=== PATIENT | male | born 1965 | race Caucasian/White ===

== ENCOUNTER → 2019-11-12 | Outpatient (CLI) | payer BC ==
[2019-11-12 08:11] LABS: HEMATOCRIT 46.4 % (42.0-52.0); MEAN CELL VOLUME 96 fl (80.0-100.0); MEAN CORPUSCULAR HEMOGLOBIN 33 pg (27.0-31.0); MEAN CORPUSCULAR HGB CONC 35 g/dl (33.0-37.0); MEAN PLATELET VOLUME 9.7 fl (7.4-10.4); PLATELET COUNT 221 K/mm3 (130-400); RED BLOOD COUNT 4.84 M/mm3 (4.20-5.60); REDCELL DISTRIBUTION WIDTH-CV 12.8 % (11.5-14.5)
[2019-11-12 08:31] LABS: ALBUMIN 4.6 gm/dL (3.5-5.0); BILIRUBIN,TOTAL 0.4 mg/dL (0.0-1.0); CALCIUM 9.9 mg/dL (8.4-10.2); CHOLESTEROL RISK RATIO 3.6; CREATININE, serum 0.71 (0.66-1.25); POTASSIUM 4.4 mmol/L (3.4-5.0); TOTAL PROTEIN 7.8 gm/dL (6.4-8.2)
[2019-11-12 09:01] LABS: THYROID STIMULATING HORMONE 1.58 uIU/mL (0.465-4.680)
[2019-11-12 22:53] LABS: URINE MICROALBUMIN 16.3 mg/dL (0.0-1.7)
== END ==
LOC: COL.LAB 07:49
PROVIDERS: Family Medicine
DX: E11.9 Type 2 diabetes mellitus without complications (principal)

== ENCOUNTER → 2020-03-25 | Outpatient (CLI) | payer OTHER | LOC: COL.LAB 13:18 | DX: Z20.828 Contact with and (suspected) exposure to other viral communicable diseases (principal) ==

== ENCOUNTER → 2020-03-29 | Outpatient (CLI) | payer BC ==
[2020-03-29 10:52] LABS: HEMATOCRIT 47.8 % (42.0-52.0); HEMOGLOBIN 16.2 g/dl (13.5-18.0); MEAN CELL VOLUME 97 fl (80.0-100.0); MEAN CORPUSCULAR HEMOGLOBIN 33 pg (27.0-31.0); MEAN CORPUSCULAR HGB CONC 34 g/dl (33.0-37.0); PLATELET COUNT 200 K/mm3 (130-400); RED BLOOD COUNT 4.95 M/mm3 (4.20-5.60); REDCELL DISTRIBUTION WIDTH-CV 12.3 % (11.5-14.5)
[2020-03-29 11:05] LABS: ALBUMIN 4.6 gm/dL (3.5-5.0); BILIRUBIN,TOTAL 0.8 mg/dL (0.0-1.0); CALCIUM 9.9 mg/dL (8.4-10.2); CHOLESTEROL RISK RATIO 4.7; CREATININE, serum 0.72 (0.66-1.25); POTASSIUM 4.6 mmol/L (3.4-5.0); TOTAL PROTEIN 8.1 gm/dL (6.4-8.2)
[2020-03-29 11:34] LABS: TSH w REFLEX 2.19 uIU/mL (0.465-4.680)
[2020-03-29 21:00] LABS: URINE MICROALBUMIN 28.5 mg/dL (0.0-1.7)
== END ==
LOC: COL.LAB 10:26
PROVIDERS: Family Medicine
DX: Z20.828 Contact with and (suspected) exposure to other viral communicable diseases (principal)

== ENCOUNTER → 2021-03-29 | Outpatient (CLI) | payer OTHER ==
[~2021-03-29] MED LIST: ASPIRIN 81M81 MG/TA2 PO; CARDIZEM CD360 MG PO; CRESTOR 10MG10 MG PO; CYMBALTA 60MG60 MG PO; PRINIVIL40 MG PO; SYNJARDY XR 121 EACH PO; TRESIBA FL200 UNIT/1 SQ; XULTOPHY 100 UNI3 ML SQ; ZYRTEC 10MG10 MG PO
[2021-03-29 09:45] LABS: HEMATOCRIT 46.1 % (42.0-52.0); HEMOGLOBIN 15.5 g/dl (13.5-18.0); MEAN CELL VOLUME 97 fl (80.0-100.0); MEAN CORPUSCULAR HEMOGLOBIN 33 pg (27.0-31.0); MEAN CORPUSCULAR HGB CONC 34 g/dl (33.0-37.0); MEAN PLATELET VOLUME 10.4 fl (7.4-10.4); PLATELET COUNT 187 K/mm3 (130-400); RED BLOOD COUNT 4.74 M/mm3 (4.20-5.60); REDCELL DISTRIBUTION WIDTH-CV 12.7 % (11.5-14.5)
[2021-03-29 09:46] LABS: ALBUMIN 4.5 gm/dL (3.5-5.0); BILIRUBIN,TOTAL 0.4 mg/dL (0.0-1.0); CHOLESTEROL RISK RATIO 5.7; CREATININE, serum 0.68 (0.66-1.25); POTASSIUM 5.2 mmol/L (3.4-5.0); TOTAL PROTEIN 7.8 gm/dL (6.4-8.2)
[2021-03-29 10:36] LABS: TSH w REFLEX 1.83 uIU/mL (0.465-4.680)
[2021-03-29 23:00] LABS: URINE MICROALBUMIN 21.6 mg/dL (0.0-1.7)
== END ==
LOC: COL.LAB 08:48
DX: E11.21 Type 2 diabetes mellitus with diabetic nephropathy (principal); Z72.89 Other problems related to lifestyle

== ENCOUNTER → 2021-06-06 | Outpatient (CLI) | payer OTHER ==
[2021-06-06 13:56] LABS: ALBUMIN 4.7 gm/dL (3.5-5.0); BILIRUBIN,TOTAL 0.2 mg/dL (0.0-1.0); CREATININE, serum 0.78 (0.66-1.25); POTASSIUM 4.8 mmol/L (3.4-5.0); TOTAL PROTEIN 8.3 gm/dL (6.4-8.2)
== END ==
LOC: COL.LAB 12:31
DX: Z12.5 Encounter for screening for malignant neoplasm of prostate (principal); Z72.89 Other problems related to lifestyle

== ENCOUNTER 2021-08-29 14:47 | Emergency (ER) | payer OTHER ==
[~2021-08-29] VITALS: Ht 177.8 cm; Wt 115.9 kg
[2021-08-29 14:53] VITALS: TEMP 99.3
[2021-08-29 15:08] LABS: BASO % 0.6 % (0.0-2.0); EOS # 0.1 K/mm3 (0.0-0.7); EOS % 1.7 % (0-4.0); GRAN # 3.5 K/mm3 (1.4-6.5); GRAN % 66.7 % (42.2-75.2); HEMATOCRIT 45.5 % (42.0-52.0); HEMOGLOBIN 15.1 g/dl (13.5-18.0); LYMPH # 1.1 K/mm3 (1.2-3.4); LYMPH % 20.8 % (20.0-51.0); MEAN CELL VOLUME 98 fl (80.0-100.0); MEAN CORPUSCULAR HEMOGLOBIN 33 pg (27.0-31.0); MEAN CORPUSCULAR HGB CONC 33 g/dl (33.0-37.0); MEAN PLATELET VOLUME 9.7 fl (7.4-10.4); MONO # 0.5 K/mm3 (0.1-0.6); MONO % 9.6 % (1.7-9.3); PLATELET COUNT 194 K/mm3 (130-400); RED BLOOD COUNT 4.63 M/mm3 (4.20-5.60); REDCELL DISTRIBUTION WIDTH-CV 13.3 % (11.5-14.5)
[2021-08-29 15:27] LABS: ALBUMIN 4.2 gm/dL (3.5-5.0); BILIRUBIN,TOTAL 0.4 mg/dL (0.2-1.2); CALCIUM 10.2 mg/dL (8.4-10.2); CREATININE, serum 0.83 mg/dL (0.72-1.25); TOTAL PROTEIN 8.1 gm/dL (6.2-8.1)
[2021-08-29] MEDS ORDERED: PRINIVIL40 MG PO (15:28)
[2021-08-29] MEDS ORDERED: XULTOPHY 100 UNI3 ML SQ (15:29)
[2021-08-29] MEDS ORDERED: CRESTOR 10MG10 MG PO (15:30)
[2021-08-29] MEDS ORDERED: CYMBALTA 60MG60 MG PO (15:30)
[2021-08-29] MEDS ORDERED: CARDIZEM CD360 MG PO (15:31)
[2021-08-29 15:32] LABS: TROPONIN-I 0.016 ng/mL (0.00-0.033)
[2021-08-29] MEDS ORDERED: ASPIRIN 81M81 MG/TA2 PO (15:32)
[2021-08-29] MEDS ORDERED: TRESIBA FL200 UNIT/1 SQ (15:32)
[2021-08-29] MEDS ORDERED: ZYRTEC 10MG10 MG PO (15:33)
[2021-08-29] MEDS ORDERED: SYNJARDY XR 121 EACH PO (15:34)
[2021-08-29 15:58] LABS: COLLECTION METHOD CLEAN CATCH
[2021-08-29 16:21] LABS: MUCOUS Present (NOT PRESENT); PH 7 (5-8); SQUAMOUS EPITHELIAL None Seen /hpf (0-10); URINE APPEARANCE Clear (CLEAR/HAZY); URINE BACTERIA Rare (NONE SEEN); URINE BILIRUBIN Negative (NEGATIVE); URINE BLOOD Negative (NEGATIVE); URINE COLOR Yellow (YELLOW); URINE GLUCOSE 3+ (NEGATIVE); URINE KETONE Negative (NEGATIVE); URINE LEUKOCYTE ESTERASE Negative (NEGATIVE); URINE NITRATE Negative (NEGATIVE); URINE PROTEIN(semi-quant) 2+ (NEGATIVE); URINE UROBILINOGEN Negative (NEGATIVE)
[2021-08-29 17:36] VITALS: BP 174/90; PULSE 74
== END 2021-08-29 17:50 | disposition home or self-care (01) ==
LOC: COL.ER 14:47
PROVIDERS: Emergency Medicine
DX: I11.0 Hypertensive heart disease with heart failure (principal); I50.9 Heart failure, unspecified; R74.01 Elevation of levels of liver transaminase levels; E11.9 Type 2 diabetes mellitus without complications; E78.5 Hyperlipidemia, unspecified; Z20.822 Contact with and (suspected) exposure to COVID-19; Z79.4 Long term (current) use of insulin; Z79.82 Long term (current) use of aspirin; Z79.899 Other long term (current) drug therapy
CPT/HCPCS: Q9967

== ENCOUNTER → 2021-10-09 | Outpatient (CLI) | payer OTHER | LOC: COL.RAD 07:15 | DX: E27.9 Disorder of adrenal gland, unspecified (principal); K76.0 Fatty (change of) liver, not elsewhere classified; N28.1 Cyst of kidney, acquired | CPT/HCPCS: A9585 ==

== ENCOUNTER → 2021-12-26 | Outpatient (CLI) | payer OTHER | LOC: COL.RAD 06:56 | DX: K76.89 Other specified diseases of liver (principal); K82.8 Other specified diseases of gallbladder ==

== ENCOUNTER 2022-02-21 08:12 | Emergency (ER) | payer OTHER ==
[~2022-02-21] VITALS: Ht 177.8 cm; Wt 113.6 kg
[2022-02-21 08:20] VITALS: BP 178/84; TEMP 98
[2022-02-21] MEDS ORDERED: ULTRAM 50MG TAB50 MG PO (09:29)
[2022-02-21 09:34] VITALS: PULSE 63
== END 2022-02-21 09:34 | disposition home or self-care (01) ==
LOC: COL.ER 08:12
DX: S80.01XA Contusion of right knee, initial encounter (principal); Z87.891 Personal history of nicotine dependence; Z28.311 Partially vaccinated for COVID-19; V23.4XXA Motorcycle driver injured in collision with car, pick-up truck or van in traffic accident, initial encounter; Y92.410 Unspecified street and highway as the place of occurrence of the external cause

== ENCOUNTER 2024-03-28 10:14 | Emergency (ER) | payer OTHER ==
[~2024-03-28] VITALS: Ht 172.7 cm; Wt 111.4 kg
[~2024-03-28 10:14] MED LIST changes: +ULTRAM 50MG TAB50 MG PO
[2024-03-28 10:19] VITALS: TEMP 98.5
[2024-03-28] MEDS ORDERED: NS 1,000 ML IV ONE (11:00)
[2024-03-28 11:44] LABS: BASO # 0.1 K/mm3 (0.0-0.2); EOS % 0.5 % (0.0-4.0); GRAN # 4.6 K/mm3 (1.4-6.5); GRAN % 77.8 % (42.2-75.2); HEMOGLOBIN 11.4 g/dl (13.5-18.0); LYMPH # 0.8 K/mm3 (1.2-3.4); LYMPH % 13.3 % (20.0-51.0); MEAN CELL VOLUME 101 fl (80.0-100.0); MEAN CORPUSCULAR HEMOGLOBIN 32 pg (27-31); MEAN CORPUSCULAR HGB CONC 31 g/dl (33.0-37.0); MEAN PLATELET VOLUME 9.6 fl (7.4-10.4); MONO # 0.4 K/mm3 (0.1-0.6); MONO % 6.9 % (1.7-9.3); PLATELET COUNT 285 K/mm3 (130-400); RED BLOOD COUNT 3.61 M/mm3 (4.20-5.60); REDCELL DISTRIBUTION WIDTH-CV 14.4 % (11.5-14.5)
[2024-03-28 11:46] LABS: HEMATOCRIT 36.6 % (42.0-52.0)
[2024-03-28 11:56] LABS: ALBUMIN 3.4 g/dL (3.4-4.8); BILIRUBIN,TOTAL 0.4 mg/dL (0.2-1.2); CALCIUM 10.9 mg/dL (8.4-10.2); CREATININE, serum 0.82 mg/dL (0.72-1.25); POTASSIUM 4.7 mEq/L (3.5-4.5); TOTAL PROTEIN 7.5 g/dl (6.2-8.1)
[2024-03-28] MEDS ORDERED: BACTRIM DS 8001 TAB PO (12:44)
[2024-03-28] MEDS ORDERED: ceFAZolin 2 G in Water For Injection,Sterile 20 ML IV ONE (12:45)
[2024-03-28 13:22] LABS: COLLECTION METHOD CLEAN CATCH
[2024-03-28 13:31] LABS: URINE APPEARANCE CLEAR (CLEAR/HAZY); URINE BLOOD NEGATIVE (NEGATIVE); URINE COLOR YELLOW (YELLOW); URINE GLUCOSE 3+ (NEGATIVE); URINE KETONE TRACE (NEGATIVE); URINE NITRATE NEGATIVE (NEGATIVE); URINE PROTEIN(semi-quant) 1+ (NEGATIVE)
[2024-03-28 13:41] VITALS: BP 164/76; PULSE 78
== END 2024-03-28 13:50 | disposition home or self-care (01) ==
LOC: COL.ER 10:14
PROVIDERS: Physician Assistant
DX: M86.9 Osteomyelitis, unspecified (principal); E11.9 Type 2 diabetes mellitus without complications; I10 Essential (primary) hypertension; Z79.4 Long term (current) use of insulin
CPT/HCPCS: J0690; J7030

== ENCOUNTER 2024-07-27 12:33 | Inpatient (IN) | payer OTHER ==
[2024-07-27] VITALS (118 sets, daily range): BP systolic 147; BP diastolic 73; PULSE 115; TEMP 99.1; O2SAT 81–100
[~2024-07-27] VITALS: Ht 172.7 cm; Wt 99.8 kg
[~2024-07-27 12:33] MED LIST changes: +BACTRIM DS 8001 TAB PO; +Thiamine 100 MG TAB PO SCH
[2024-07-27] MEDS ORDERED: NS 1,000 ML IV SCH ×3 (13:30→19:15)
[2024-07-27 13:33] LABS: BASO # 0.1 K/mm3 (0.0-0.2); BASO % 0.5 % (0.0-2.0); EOS % 0.2 % (0.0-4.0); GRAN # 10.9 K/mm3 (1.4-6.5); GRAN % 84.2 % (42.2-75.2); LYMPH # 0.8 K/mm3 (1.2-3.4); LYMPH % 5.9 % (20.0-51.0); MEAN CELL VOLUME 107 fl (80.0-100.0); MEAN CORPUSCULAR HGB CONC 31 g/dl (33.0-37.0); MEAN PLATELET VOLUME 10.5 fl (7.4-10.4); PLATELET COUNT 366 K/mm3 (130-400); RED BLOOD COUNT 2.94 M/mm3 (4.20-5.60); REDCELL DISTRIBUTION WIDTH-CV 15.1 % (11.5-14.5)
[2024-07-27 13:37] LABS: HEMATOCRIT 31.5 % (42.0-52.0); HEMOGLOBIN 9.8 g/dl (13.5-18.0); MEAN CORPUSCULAR HEMOGLOBIN 33 pg (27-31)
[2024-07-27 13:53] LABS: ALBUMIN 2.3 g/dL (3.4-4.8); BILIRUBIN,TOTAL 0.2 mg/dL (0.2-1.2); CALCIUM 10.4 mg/dL (8.4-10.2); CREATININE, serum 1.38 mg/dL (0.72-1.25); TOTAL PROTEIN 7.2 g/dl (6.2-8.1)
[2024-07-27 14:00] LABS: COLLECTION METHOD CLEAN CATCH
[2024-07-27 14:00] LABS: C-REACTIVE PROTEIN 38.93 mg/dL (0.00-0.50)
[2024-07-27 14:05] LABS: URINE APPEARANCE CLEAR (CLEAR/HAZY); URINE BLOOD TRACE (NEGATIVE); URINE COLOR YELLOW (YELLOW); URINE GLUCOSE 3+ (NEGATIVE); URINE KETONE 4+ (NEGATIVE); URINE NITRATE NEGATIVE (NEGATIVE); URINE PROTEIN(semi-quant) 2+ (NEGATIVE); URINE UROBILINOGEN 0.2 E.U/dL (0.2-1.0)
[2024-07-27] MEDS ORDERED: Insulin Human Regular/NS 100 ML IV ONE (15:15)
--- NOTE | 2024-07-27 16:26 | NUR ---
gospel worker received call for pt to assist with his two dogs being home alone and pt needs urgent admission due to his infected/black toe. SW spoke with pt and noted his poor prognosis if he leaves, and physical appearance of the toe, resulting in him needing admission. Pt confirmed to live in [place] in his truck/camper with a lab and "cangle" dog. He sees MC Wright for PCP needs. Pt reports to have [facility] insurance "for now." He is unemployed and has been working on Social Security. Pt confirmed his brother, Nilton [phone] is his contact and lives in [place]. He expressed concerns about being admitted and his dogs. SW brainstormed options with pt who reports no family, friends, neighbors available to help. MC Montiel arrived and assisted with informing pt of the medical concerns. Pt was agreeable to SW reaching out to Animal Control/Political Anthropologist's Office to assist with checking on dogs or taking [facility]. SHARRI spoke with Dispatch [phone] who connected SW to Deputy Borden at the [facility]'s department. He later staffed this and this will be passed to the [facility] Dental Appliance Repairer. He reports a [facility] can check on the dogs this evening and later on tomorrow, once pt calls the above number and gives permission. Deputy Borden needed additional details on the vehicles. SHARRI spoke with LIT Pacheco and provided above update. She confirmed pt's car is a LOT [address] and is a white dodge imriam hop picker with a white/gold camper that is unlocked. SHARRI relayed this information to dispatch who will pass along to an officer. RN was advised to inform the floor nurse of the number pt needs to call as he is getting admitted.
[2024-07-27] MEDS ORDERED: DIABETA 5MG5 MG/TAB PO (16:56)
[2024-07-27] MEDS ORDERED: MAXZIDE-25MG TA1 TAB PO (16:56)
[2024-07-27] MEDS ORDERED: TOPROL XL 25MG25 MG PO (16:57)
[2024-07-27] MEDS ORDERED: XARELTO20 MG PO (16:57)
[2024-07-27] MEDS ORDERED: Multivitamin TAB PO SCH (17:00)
[2024-07-27] MEDS ORDERED: LORazepam 2 MG/ML 1 ML VIAL IV PRN (17:00)
[2024-07-27] MEDS ORDERED: Acetaminophen 500 MG TAB PO PRN (17:00)
[2024-07-27] MEDS ORDERED: Mag/Al Hydrox/Simeth Susp 30 ML CUP PO PRN (17:00)
[2024-07-27] MEDS ORDERED: oxyCODONE 5 MG TAB PO PRN (17:00)
[2024-07-27] MEDS ORDERED: Ondansetron 4 MG/2 ML VIAL IV PRN (17:00)
[2024-07-27] MEDS ORDERED: Insulin Human Regular/NS 100 ML IV SCH (17:00)
[2024-07-27] MEDS ORDERED: Albuterol/Ipratropium 3 MG-0.5 MG/3 ML Neb Soln IH PRN (17:15)
[2024-07-27] MEDS ORDERED: Heparin 5,000 UNITS/ML 1 ML VIAL IV PRN (17:15)
[2024-07-27] MEDS ORDERED: Heparin/D5W 250 ML IV SCH (17:15)
[2024-07-27 17:23] LABS: PARTIAL THROMBOPLASTIN TIME 33.5 SECONDS (26.0-37.0)
[2024-07-27 18:09] LABS: CALCIUM 10.2 mg/dL (8.4-10.2); CREATININE, serum 1.26 mg/dL (0.72-1.25); POTASSIUM 4.5 mEq/L (3.5-4.5)
[2024-07-27] MEDS ORDERED: Albuterol/Ipratropium 3 MG-0.5 MG/3 ML Neb Soln IH SCH (19:00)
[2024-07-27] MEDS ORDERED: Dextrose 50% Water 25 GM/50 ML SYRINGE IV PRN (20:30)
[2024-07-27] MEDS ORDERED: LR 1,000 ML IV SCH (20:30)
[2024-07-27] MEDS ORDERED: Dextrose (Glucose) 15 GM (4 x 3.75 GM) Chewable TABLET PACK PO PRN (20:30)
[2024-07-27] MEDS ORDERED: Glucagon 1 MG VIAL IM PRN (20:30)
[2024-07-27] MEDS ORDERED: Atorvastatin 20 MG TAB PO SCH (21:00)
[2024-07-27] MEDS ORDERED: Insulin Lispro (HumaLOG) SQ SCH (21:00)
[2024-07-27] MEDS ORDERED: Rosuvastatin 10 MG **** subs to Atorvastatin 20 MG PO SCH (21:00)
[2024-07-27 22:12] LABS: CALCIUM 9.7 mg/dL (8.4-10.2); CREATININE, serum 1.28 mg/dL (0.72-1.25)
[2024-07-27] MEDS ORDERED: Sodium Bicarbonate/Water,Steri 1,150 ML IV SCH (22:45)
[2024-07-27] MEDS ORDERED: D5 1/2 NS 1,000 ML IV SCH (23:15)
--- NOTE | 2024-07-27 23:25 | NUR ---
CPAP INITIALLY HELD DUE TO PT CONFUSION. RN LATER CALLS STATING PT IS HAVING A DIFFICULT TIME BREATHING AND IS REQUESTING CPAP. CPAP +5 21% FIO2 INITIALLY STARTED. PT PULLING TIDAL VOLUMES OVER 1000 AND BREATHING IN THE 30S. PT STARTED TO RIP THE MASK OFF STATING "THIS WASN'T HELPING." RN NOTIFIED. PT NOW BACK ON RA SATTING 100%. PT IN NO APPARENT DISTRESS.
[2024-07-27] MEDS ORDERED: LORazepam 2 MG/ML 1 ML VIAL IV ONE (23:45)
[2024-07-27] MEDS ORDERED: Melatonin 3 MG TAB PO ONE (23:45)
[2024-07-28] VITALS (758 sets, daily range): BP systolic 101–153; BP diastolic 50–71; PULSE 90–111; TEMP 98.6–99.5; O2SAT 75–100
[2024-07-28 01:27] LABS: CALCIUM 9.5 mg/dL (8.4-10.2); CREATININE, serum 1.31 mg/dL (0.72-1.25); POTASSIUM 4.9 mEq/L (3.5-4.5)
--- NOTE | 2024-07-28 01:36 | NUR ---
ATTEMPTED BIPAP AGAIN AT 0022 PER HOSPITALIST'S REQUEST. SETTING WERE 07/10 R18 FIO2 30%. PT PULLING TIDAL VOLUMES OF 700 TO OVER 1000. RR STILL IN THE LOW TO HIGH 30'S. PT BEGAN PULLING ON BIPAP ATTEMPTING TO RIP IT OFF. BIPAP TAKEN OFF, PT ON RA SATTING 100%. PROVIDER AWARE.
[2024-07-28 05:22] LABS: BASO % 0.4 % (0.0-2.0); EOS % 0.1 % (0.0-4.0); GRAN # 7.7 K/mm3 (1.4-6.5); GRAN % 83.6 % (42.2-75.2); LYMPH # 0.8 K/mm3 (1.2-3.4); LYMPH % 8.3 % (20.0-51.0); MEAN CORPUSCULAR HGB CONC 33 g/dl (33.0-37.0); MEAN PLATELET VOLUME 10.5 fl (7.4-10.4); MONO # 0.6 K/mm3 (0.1-0.6); MONO % 6.7 % (1.7-9.3); PLATELET COUNT 274 K/mm3 (130-400); RED BLOOD COUNT 2.46 M/mm3 (4.20-5.60); REDCELL DISTRIBUTION WIDTH-CV 14.6 % (11.5-14.5)
[2024-07-28 05:24] LABS: HEMATOCRIT 24.8 % (42.0-52.0); HEMOGLOBIN 8.1 g/dl (13.5-18.0); MEAN CORPUSCULAR HEMOGLOBIN 33 pg (27-31)
[2024-07-28 05:25] LABS: MEAN CELL VOLUME 101 fl (80.0-100.0)
[2024-07-28 05:47] LABS: CALCIUM 9.1 mg/dL (8.4-10.2); CREATININE, serum 1.35 mg/dL (0.72-1.25); POTASSIUM 4.2 mEq/L (3.5-4.5)
--- NOTE | 2024-07-28 06:30 | NUR ---
Was able to do the assessment intake, physical, pharmacy, and allergies. Was not able to do the med. rec. due to pt's RR increasing and having difficulty breathing. Pt has his clothes, slides, and phone in the room from the ER. Pt was A&O X4 at the beginning of the shift. Pt was marianela and had high resp rate and having difficulty with breathing and seems to need to work extra hard with his breathing and has some abdominal breathing going on. Pt was not on any fluids or drips at the beginning of the shift. Was addressed with the hospitalist. Pt was put on LR and eventually on sodium bicarb to help with the acidosis that the pt is having. Hospitalist came and saw the pt at 2350 and noticed that the pt was having difficultly breathing. He gave some new orders to try to get the pt on the BiPAP. After Ativan was given pt became more confused and loopy in a since. Pt was not tolerating and called hospitalist. Hospitalist wanted to start pt on the precedex drip. The drip was started and later tried to put the BiPAP on and pt still did not tolerate being on the BiPAP. Hospitalist notified and stated to D/C the drip and hold off on the BiPAP and if the pt gets worse to reassess and go from there. Pt is currently resting in bed and has been breathing with a rate in the 30's. Pt's SPO2 has been above 95% this whole shift. Pt's other vitals are stable at this time. Pt will wake up upon speech and was able to answer oriented questions. Bed is in low position, bed alarms on, and call light within reach. Will give report to day shift nurse.
[2024-07-28 08:24] LABS: ARTERIAL BLD GAS O2 SATURATION 91.4 % (92-100); ARTERIAL BLD GAS TCO2 CT 14.3; ARTERIAL BLOOD GAS BASE EXCESS -10.8 (-2-2); ARTERIAL BLOOD GAS HCO3 13.5 meq/L (22-26); ARTERIAL BLOOD GAS PCO2 25.1 mmHg (35-45); ARTERIAL BLOOD GAS PO2 63.3 mmHg (80-100); ARTERIAL BLOOD GAS pH 7.35 (7.35-7.45)
[2024-07-28] MEDS ORDERED: D5 1/2 NS 1,000 ML IV SCH (09:00)
[2024-07-28] MEDS ORDERED: Folic Acid 1 MG TAB PO SCH (09:00)
[2024-07-28] MEDS ORDERED: Vancomycin 1.5 GM,Special Dose/Pharmacy Prepared 1.5 GM in NS 250 ML IV SCH (09:00)
[2024-07-28] MEDS ORDERED: DULoxetine 60 MG CAP PO SCH (09:00)
[2024-07-28 09:17] LABS: CALCIUM 9.3 mg/dL (8.4-10.2); CREATININE, serum 1.35 mg/dL (0.72-1.25); POTASSIUM 4.2 mEq/L (3.5-4.5)
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
[2024-07-28] MEDS ORDERED: NS 1,000 ML IV SCH (10:45)
--- NOTE | 2024-07-28 11:01 | NUR ---
SW received a call back from cyber transport systems specialist reporting that he had further questions. SW met with pt on speakerphone with officer and RN. Pt reports the chocolate Lab is Deysi and the white dog is Jayshree. Pt states they had their shots done at [facility] at the beginning of the year. Chief later informs SW that the dogs are friendly, but they have not been been let out for awhile based on the condition of the trailer and it is too small for them. He also could not locate the food. Chief states he is taking them to [facility] in [place], [place] to get proper care. Chief inquired about LOS for pt and SW spoke with RN who confirmed it could be a week minimum. He verbalized understanding and had no other questions for SW.
[2024-07-28 13:04] LABS: CALCIUM 9.2 mg/dL (8.4-10.2); CREATININE, serum 1.32 mg/dL (0.72-1.25); POTASSIUM 3.7 mEq/L (3.5-4.5)
[2024-07-28] MEDS ORDERED: Lidocaine PF 2% (20 MG/ML) 5 ML VIAL ONE (13:08)
[2024-07-28] MEDS ORDERED: Rocuronium 50 MG/5 ML Multi-Dose VIAL ONE ×2 (13:10→15:51)
[2024-07-28] MEDS ORDERED: Glycopyrrolate 0.2 MG/ML 1 ML VIAL ONE (13:11)
[2024-07-28] MEDS ORDERED: fentaNYL 50 MCG/ML 2 ML VIAL ONE ×2 (13:11→14:26)
[2024-07-28] MEDS ORDERED: Phenylephrine 10 MG/ML VIAL ONE (13:12)
[2024-07-28] MEDS ORDERED: Tranexamic Acid 1,000 MG/10 ML VIAL ONE (14:50)
--- NOTE | 2024-07-28 16:15 | NUR ---
Returned from surgery intubated; Tolerating vent well and VS stable upon return. Hospitalist notified of return to ICU.
[2024-07-28] MEDS ORDERED: fentaNYL 100 ML IV SCH (16:45)
[2024-07-28 17:54] LABS: ARTERIAL BLD GAS TCO2 CT 14.2; ARTERIAL BLOOD GAS BASE EXCESS -12.2 (-2-2); ARTERIAL BLOOD GAS HCO3 13.3 meq/L (22-26); ARTERIAL BLOOD GAS PO2 97.6 mmHg (80-100); ARTERIAL BLOOD GAS pH 7.27 (7.35-7.45)
[2024-07-28] MEDS ORDERED: LR 1,000 ML IV SCH (18:00)
[2024-07-28] MEDS ORDERED: Pantoprazole 40 MG in NS 10 ML IV SCH (18:15)
--- NOTE | 2024-07-28 20:08 | NUR ---
ETT PUSHED 3 CM. NOW [address] @ LIP PER [address] CHEN'S ORDERS. BILATERAL BS, MODERATE THICK YELLOW SXN'D FROM ETT. ORAL CARE PERFORMED. ORDERS TO OBTAIN ABG AT 2100.
[2024-07-28 20:57] LABS: ARTERIAL BLD GAS O2 SATURATION 99.1 % (92-100); ARTERIAL BLD GAS TCO2 CT 16.1; ARTERIAL BLOOD GAS HCO3 15.2 meq/L (22-26); ARTERIAL BLOOD GAS PCO2 27.1 mmHg (35-45); ARTERIAL BLOOD GAS PO2 157.2 mmHg (80-100); ARTERIAL BLOOD GAS pH 7.37 (7.35-7.45)
--- NOTE | 2024-07-28 21:09 | NUR ---
ABG OBTAINED. FIO2 REDUCED FROM 40% TO 30%.
--- NOTE | 2024-07-28 22:33 | NUR ---
PT LAYING IN BED ON VENTILATOR UPON ENTERING. PT RESPONDING TO PAINFUL STIMULI ONLY, UNABLE TO FOLLOW COMMANDS. RIGHT UPPER ARM PICC AND LEFT AC INT IN PLACE. LEFT BKA WITH BRIDGETT WRAP AND KNEE IMMOBILIZER IN PLACE, NO REDNESS NOTED AND DRESSING CDI. COCCYX REDDNED, SKIN INTACT AND BLANCHABLE. CRUSTING NOTED TO RIGHT HEEL AND RIGHT GREAT TOE. RIGHT LOWER EXTREMITY REDDENED WITH FLAKING SKIN. SKIN TEAR TO LEFT HAND, MEPILEX IN PLACE. SCATTERED BRUISING TO BILATERAL UPPER EXTREMITIES. BED IN LOWEST POSITION, CALL LIGHT IN REACH, BED ALARM ON.
[2024-07-28 22:43] LABS: CALCIUM 8.8 mg/dL (8.4-10.2); CREATININE, serum 1.41 mg/dL (0.72-1.25); MAGNESIUM 1.8 mg/dL (1.6-2.6); POTASSIUM 3.6 mEq/L (3.5-4.5)
[2024-07-29] VITALS (502 sets, daily range): BP systolic 115–150; BP diastolic 60–74; PULSE 82–99; TEMP 99–100.3; O2SAT 73–100
--- NOTE | 2024-07-29 01:29 | NUR ---
PT FOLLOWING COMMANDS TO OPEN EYES AND SQUEEZE HANDS, WEAK HAND ELECTRIC METER TESTER HELPER NOTED. BED IN LOWEST POSITION, CALL LIGHT IN REACH, BED ALARM ON
[2024-07-29 05:11] LABS: ARTERIAL BLD GAS O2 SATURATION 98.1 % (92-100); ARTERIAL BLD GAS TCO2 CT 20.8; ARTERIAL BLOOD GAS BASE EXCESS -2.9 (-2-2); ARTERIAL BLOOD GAS HCO3 19.9 meq/L (22-26); ARTERIAL BLOOD GAS PCO2 26.7 mmHg (35-45); ARTERIAL BLOOD GAS PO2 101.2 mmHg (80-100); ARTERIAL BLOOD GAS pH 7.49 (7.35-7.45)
--- NOTE | 2024-07-29 05:38 | NUR ---
SEDATION VACATION NOT APPROPRIATE AT THIS TIME, PT ON VENT LESS THAN 24 HOURS
[2024-07-29 05:46] LABS: MEAN CELL VOLUME 101 fl (80.0-100.0); MEAN CORPUSCULAR HGB CONC 34 g/dl (33.0-37.0); MEAN PLATELET VOLUME 10.6 fl (7.4-10.4); PLATELET COUNT 244 K/mm3 (130-400); REDCELL DISTRIBUTION WIDTH-CV 14.3 % (11.5-14.5)
[2024-07-29 05:49] LABS: HEMATOCRIT 21.2 % (42.0-52.0); HEMOGLOBIN 7.1 g/dl (13.5-18.0); MEAN CORPUSCULAR HEMOGLOBIN 34 pg (27-31)
[2024-07-29 06:10] LABS: CALCIUM 8.4 mg/dL (8.4-10.2); CREATININE, serum 1.16 mg/dL (0.72-1.25); POTASSIUM 3.1 mEq/L (3.5-4.5)
[2024-07-29 07:12] LABS: BAND 31 % (0-10); LYMPHOCYTE 5 % (20.0-51.0); NEUTROPHILS 63 % (42.0-75.2); PLATELET ESTIMATE NORMAL (NORMAL)
[2024-07-29] MEDS ORDERED: Influenza Virus Vaccine, Trivalent '24-25 0.5 ML SYRINGE IM SCH (09:00)
[2024-07-29] MEDS ORDERED: D5 1/2 NS & 20 mEq KCl 1,000 ML IV SCH (09:45)
[2024-07-29] MEDS ORDERED: *Potassium Replacement Protocol MC SCH (11:15)
--- NOTE | 2024-07-29 11:19 | NUR ---
SHARRI attended clinical rounding and pt will remain intubated, he is responding to stimuli per Dr. Mcdonnell. SHARRI spoke with Chief Clarke and provided update pt is still with hospital. He inquired about if pt's brother is heading to [place] due to status change. SHARRI advised it did not appear as so per prior conversation. He reports concerns if pt can discharge from the hospital and manage the two dogs. Chief reports the dogs could go to a fci/rescue, after a certain time and be put up for adoption. SHARRI advised they will keep him updated. SHARRI left voicemail to Melvin sierra to provide update. Discharge Plan: intubated
[2024-07-29] MEDS ORDERED: Potassium Chloride 100 ML IV SCH ×2 (11:30→21:30)
--- NOTE | 2024-07-29 11:37 | NUR ---
hospitality workers received a call back from brother, Melvin and he is aware of pt's current status. SW provided update from the deicer tester regarding pt's dogs and then could likely result in adoption. Brother reports it is very expensive to come to [place] and he plans to come if he has to. He is in agreement with dogs staying where they are. He has the ICU # to call with questions.
[2024-07-29] MEDS ORDERED: Cyanocobalamin (Vit B-12) 1,000 MCG TAB PO SCH (14:59)
[2024-07-29] MEDS ORDERED: Folic Acid 1 MG TAB PO SCH (14:59)
[2024-07-29 16:18] LABS: ARTERIAL BLD GAS O2 SATURATION 97.2 % (92-100); ARTERIAL BLD GAS TCO2 CT 22.4; ARTERIAL BLOOD GAS BASE EXCESS -1.6 (-2-2); ARTERIAL BLOOD GAS HCO3 21.5 meq/L (22-26); ARTERIAL BLOOD GAS PCO2 30.1 mmHg (35-45); ARTERIAL BLOOD GAS PO2 88.6 mmHg (80-100); ARTERIAL BLOOD GAS pH 7.47 (7.35-7.45)
[2024-07-29 16:26] LABS: HEMATOCRIT 24.5 % (42.0-52.0); HEMOGLOBIN 8.2 g/dl (13.5-18.0)
--- NOTE | 2024-07-29 16:28 | NUR ---
PT IS RESTING IN THE BED ON THE VENTILATOR. HE DOES OPEN HIS EYES SPONTANEOUSLY. HE HAS AN OG TO LIS. HE HAS A ESPINO CATHETER. HE HAS A RIGHT UPPER ARM PICC WITH FENTANYL, PROP, INSULIN, BICARB AND FLUIDS INFUSING. HE HAS AN BRIDGETT BANDAGE AND KNEE IMOBILIZER ON THE LEFT LOWER LEG AND KNEE.
[2024-07-29 16:42] LABS: MAGNESIUM 1.6 mg/dL (1.6-2.6); POTASSIUM 3.6 mEq/L (3.5-4.5)
--- NOTE | 2024-07-29 19:45 | NUR ---
PRN BREATHING TX ADMINISTERED.
--- NOTE | 2024-07-29 20:00 | NUR ---
PT LAYING IN BED ON VENT UPON ENTERING. PT RESTLESS IN BED PULLING AT RESTRAINTS WITH INCREASED COUGHING NOTED. PTS EYES ARE OPEN AND PT IS ABLE TO SQUEEZE THIS RNS HAND WHEN ASKED, UNABLE TO FOLLOW OTHER COMMANDS. PT REORIENTED AND SHORTLY AFTER RESTING CALMLY IN BED WITH EYES CLOSED. ESPINO PATENT. TUBE FEEDING AT 20 MLS/HR. LEFT BKA DRESSING CDI, KNEE IMMOBILIZER IN PLACE, EXTREMITY WARM TO TOUCH AND NO REDNESS NOTED. COCCYX REDDENED, SKIN INTACT AND BLANCHABLE. RIGHT HEEL AND GREAT TOE CRUSTING. RLE REDDENED WITH FLAKING SKIN NOTED. LEFT HAND SKIN TEAR, MEPILEX IN PLACE. INTERMITTENT RESTLESSNESS, PT REORIENTED APPROPRIATELY. BED IN LOWEST POSITION, CALL LIGHT IN REACH, BED ALARM ON
[2024-07-30] VITALS (296 sets, daily range): BP systolic 122–156; BP diastolic 67–87; PULSE 81–122; TEMP 99–99.4; O2SAT 69–100
[2024-07-30 05:32] LABS: MEAN CELL VOLUME 100 fl (80.0-100.0); MEAN CORPUSCULAR HGB CONC 33 g/dl (33.0-37.0); MEAN PLATELET VOLUME 10.4 fl (7.4-10.4); PLATELET COUNT 285 K/mm3 (130-400); RED BLOOD COUNT 2.39 M/mm3 (4.20-5.60); REDCELL DISTRIBUTION WIDTH-CV 14.2 % (11.5-14.5)
[2024-07-30 05:35] LABS: HEMOGLOBIN 7.9 g/dl (13.5-18.0); MEAN CORPUSCULAR HEMOGLOBIN 33 pg (27-31)
[2024-07-30 05:47] LABS: CALCIUM 8.1 mg/dL (8.4-10.2); CREATININE, serum 0.87 mg/dL (0.72-1.25); MAGNESIUM 1.6 mg/dL (1.6-2.6); POTASSIUM 3.8 mEq/L (3.5-4.5)
[2024-07-30 06:07] LABS: BAND 9 % (0-10); LYMPHOCYTE 8 % (20.0-51.0); NEUTROPHILS 78 % (42.0-75.2); PLATELET ESTIMATE NORMAL (NORMAL)
--- NOTE | 2024-07-30 07:43 | NUR ---
SEDATION VACATION ATTEMPTED AFTER 0500, SEE DRIP TITRATIONS
[2024-07-30] MEDS ORDERED: Magnesium Sulfate 4% 50 ML IV ONE (08:30)
[2024-07-30] MEDS ORDERED: Furosemide 40 MG/4 ML VIAL IV ONE ×2 (08:30→18:00)
[2024-07-30 08:42] LABS: ARTERIAL BLD GAS O2 SATURATION 97.7 % (92-100); ARTERIAL BLD GAS TCO2 CT 20.7; ARTERIAL BLOOD GAS BASE EXCESS -2.8 (-2-2); ARTERIAL BLOOD GAS HCO3 19.8 meq/L (22-26); ARTERIAL BLOOD GAS PCO2 27.9 mmHg (35-45); ARTERIAL BLOOD GAS PO2 96.5 mmHg (80-100); ARTERIAL BLOOD GAS pH 7.47 (7.35-7.45)
--- NOTE | 2024-07-30 09:06 | NUR ---
PT EXTUBATED PER VERBAL ORDER FROM Cecilia HOWARD. PT PLACE ON 5LPM OXYMASK, THEN REDUCED TO 4LPM. PT WILL BE WEENED NECESAARY. PT AWAKE AND ALERT WITH NO DISTRESS NOTED.
[2024-07-30] MEDS ORDERED: Morphine 4 MG/ML VIAL IV PRN (09:45)
[2024-07-30] MEDS ORDERED: DULoxetine 60 MG CAP PO SCH (10:00)
--- NOTE | 2024-07-30 10:12 | NUR ---
metalworker attended clinical rounding and pt was extubated and tolerated well. SHARRI spoke with brother, Melvin and provided update on pt status. He was thankful to receive an update and was informed he could try to call pt later on when he wakes up and is more alert. SHARRI informed forensics team director, Clarke that pt is still in the hospital and anticipated to remain here for awhile to secure placement. Clarke inquired about what is going to happen to pt's car/camper at the [facility] and was nervous about the fee for the two dogs at [facility]. and how pt is going to pay or manage that. SHARRI advised she is not sure on what the outcome/decision would be, but pt's brother was wanting to dogs to go to a rescue or half-way. Clarke requested the brother's number to discuss with him and SHARRI provided this. SHARRI advised the brother was aware the Chief might call to discuss options. PT/OT pending Discharge Plan: post-acute rehab
[2024-07-30] MEDS ORDERED: Insulin Lispro (HumaLOG) SQ SCH (12:00)
--- NOTE | 2024-07-30 12:47 | NUR ---
PT IS RESTING IN BED ON THE VENTILATOR. WE ARE WORKING ON A SEDATION VACATION AND BREATHING TRIAL. HE IS ALERT AND FOLLOWS COMMANDS. HE IS ANXIOUS BUT SETTLES WITH SOME REASSURANCE. HE HAS A ESPINO CATHETER IN PLACE. HE STILL HAS THE OG, WHICH IS TO SUCTION AND OFF OF FEEDS. HIS LEFT BKA REMAINS WRAPPED IN AN BRIDGETT BANDAGE AND IN THE KNEE IMMOBILIZER. HE HAS A PICC LINE WITH PROPOFOL, FENTANYL, INSULIN AND FLUIDS INFUSING.
--- NOTE | 2024-07-30 12:52 | NUR ---
Vancomycin Follow-up Pharmacy Note Current regimen: Vancomycin 1 gm IV q12h Vancomycin trough: 21.18 Adjustments: Dose increased from Vancomycin 1.5 gm IV q24h to 1 gm IV q12h yesterday with improved renal function. Continued improvement today (SCr 0.87, CrCl~90, GFR 99). Will hold dose to allow level to clear and restart 1 gm IV q12h at 1500 today. Pharmacy will continue to closely monitor.
--- NOTE | 2024-07-30 13:50 | NUR ---
SHARRI briefly discussed with [facility] who reports they are out of network with pt's [employer] insurance. field crop harvest worker spoke with Brittaney at [facility] who reports pt's insurance does not have skilled benefits. field crop harvest worker spoke with Sussy at [facility] who accepts pt's insurance. SHARRI did advise pt is in the ICU and extubated today with some confusion noted. Sussy was agreeable to reviewing referral. SHARRI faxed this. Discharge Plan: post-acute rehab
--- NOTE | 2024-07-30 19:58 | NUR ---
PT FENTANYL AND PROPOFOL STOPPED AT 0818 FOR A SEDATION VACATION AND VENT WEANING TRIAL PER DR RAND
--- NOTE | 2024-07-30 20:30 | NUR ---
PT ASSESSMENT COMPLETE. PT SITTING UP IN BED, CALM AND COOPERATIVE HOWEVER NEEDING SOME REORIENTATION TO DATE AND CURRENT POC. PT MEDICATED FOR PAIN TO L LEG. SURGICAL DRESSING IN PLACE WITH KNEE IMMOBILIZER, CDI AND ELEVATED ON PILLOW. RLE NOTED TO BE RED AND WARM WITH TIGHT SKIN, PT STATES HAS BEEN LIKE THAT RECENTLY. 2+ PEDAL PULSES TO R FOOT AND NO PAIN REPORTED TO RLE PER PT. RESP EVEN AND UNLABORED, MAINTAINING SATS >95% ON RA. PT HAS YANKAUER AT HAND FOR OCCASIONAL PRODUCTIVE COUGH, HOWEVER LUNGS CTA. PT REMAINS NPO DUE TO FAILING SWALLOW EVAL, EXPLAINED PRECAUTIONS TO PT AND THAT REPEAT EVALUATION WILL TAKE PLACE TOMORROW. PT REQUESTED TOOTHBRUSH, AND INDEPENDENTLY BRUSHED TEETH. DOES NOT WANT ANY FURTHER ASSISTANCE WITH HYGIENE AT THIS TIME. CATHETER CARE COMPLETED. PT RESTING ON BACK, DOES NOT WANT TO TURN AT THIS TIME.
[2024-07-31] VITALS (115 sets, daily range): BP systolic 132–147; BP diastolic 67–81; PULSE 90–99; TEMP 97.9–99.1; O2SAT 83–100
--- NOTE | 2024-07-31 00:41 | NUR ---
PT REQUESTED CPAP TO USE, HE USUALLY USES ONE AT HOME. ORDERS RECEIVED, RT AT BEDSIDE TO SET UP ON CPAP MACHINE.
[2024-07-31 05:35] LABS: MEAN CORPUSCULAR HGB CONC 31 g/dl (33.0-37.0); MEAN PLATELET VOLUME 10.3 fl (7.4-10.4); PLATELET COUNT 333 K/mm3 (130-400); RED BLOOD COUNT 2.52 M/mm3 (4.20-5.60); REDCELL DISTRIBUTION WIDTH-CV 14.6 % (11.5-14.5)
[2024-07-31 05:39] LABS: HEMATOCRIT 26.5 % (42.0-52.0); HEMOGLOBIN 8.3 g/dl (13.5-18.0); MEAN CORPUSCULAR HEMOGLOBIN 33 pg (27-31)
[2024-07-31 05:40] LABS: MEAN CELL VOLUME 105 fl (80.0-100.0)
[2024-07-31 05:45] LABS: CALCIUM 8.5 mg/dL (8.4-10.2); CREATININE, serum 0.89 mg/dL (0.72-1.25); MAGNESIUM 1.8 mg/dL (1.6-2.6); POTASSIUM 3.7 mEq/L (3.5-4.5)
[2024-07-31] MEDS ORDERED: Potassium Chloride 100 ML IV SCH (07:00)
--- NOTE | 2024-07-31 07:00 | NUR ---
Report received from LIT Carballo; patient currently resting in bed with potassium running through patient's right upper arm PICC. Patient on room air after wearing CPAP at night. Patient has a Guadalupe catheter in place; no other lines or tubes are in place at this time. Patient has brace and dressing on his right leg after BKA; per ortho nothing is to be done with dressing at this time. Patient failed swallow eval yesterday and is not able to take PO meds; BP has been slightly elevated; other vital signs are within normal limits this morning.
[2024-07-31 07:08] LABS: BAND 11 % (0-10); LYMPHOCYTE 9 % (20.0-51.0); METAMYELOCYTE 2 % (0-0); NEUTROPHILS 72 % (42.0-75.2); PLATELET ESTIMATE NORMAL (NORMAL)
[2024-07-31] MEDS ORDERED: Insulin Glargine-ygfn (Lantus) SQ SCH (10:30)
--- NOTE | 2024-07-31 15:27 | NUR ---
Digital Imaging Technician contacted Sussy at [facility] and faxed clinical updates. Sussy requested updates on Saturday then can submit for auth through [employer].
--- NOTE | 2024-07-31 15:45 | NUR ---
Reported off to LIT Blake; patient taken upstairs in bed by this nurse to medical floor, room 301. Patient had no meds or fluids running through his right upper arm PICC. Patient's belongings and CPAP taken up to new room. Met LIT Blake in room and handed patient off. Patient awake and alert and in stable condition.
--- NOTE | 2024-07-31 15:45 | NUR ---
PATIENT ARRIVED FROM ICU [facility] AND ALERT, SITTING UP IN BED. PATIENT REORIENTED TO NEW ROOM. PATIETN HAS DRESSING TO LEFT BKA SITE, ESPINO IN PLACE, PATENT AND DRAINING CLEAR YELLOW URINE. PATIENT IS ORIENTED HOWEVER IS SLOW TO RESPOND TO ANY QUESTIONS OR CONVERSATIONS. CALL LIGHT WITHIN REACH, FALL PRECAUTIONS IN PLACE.
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
[2024-08-01] VITALS (8 sets, daily range): BP systolic 121–154; BP diastolic 57–77; PULSE 67–94; TEMP 97.8–98.8
--- NOTE | 2024-08-01 01:38 | NUR ---
PATIENT C/O OF ITCHING AND BURNING GROIN. VISUAL INSPECTION SHOWS NO EXCORIATION OR YEAST-LIKE GROWTH. INTERDRY PLACED. PICC LINED FLUSHED, BOTH RED AND PURPLE LUMEN HAVE GOOD BLOOD RETURN.
[2024-08-01 06:33] LABS: CALCIUM 7.9 mg/dL (8.4-10.2); CREATININE, serum 0.85 mg/dL (0.72-1.25)
--- NOTE | 2024-08-01 12:14 | NUR ---
Data: Patient accepted spiritual care visit offered during Shipping Team Leader rounds. Patient recounted the circumstances of his hospital stay and of his leg amputation. Assessment: Patient appeared to be very sleepy; eyes drooping frequently. Plan of Care: Shipping Team Leader provided supportive listening; a bible; and prayer. Chaplains will remain available as needed/requested while Patient is admitted to this hospital.
--- NOTE | 2024-08-01 13:14 | NUR ---
SW MADE AWARE OF PATIENT NEEDING A MED VOUCHER FOR DISCHAGRE MEDICAITONS.
[2024-08-01] MEDS ORDERED: Insulin Lispro (HumaLOG) SQ SCH (21:00)
[2024-08-02] VITALS (12 sets, daily range): BP systolic 111–152; BP diastolic 57–81; PULSE 61–99; TEMP 97.5–98.5
--- NOTE | 2024-08-02 00:02 | NUR ---
MC Castanon notified for clarification of accucheack orders, "okay to swtich to [facility] to match insulin sliding scale orders."
[2024-08-02 07:51] LABS: CLOSTRIDIUM DIFF A/B NEG
[2024-08-02] MEDS ORDERED: Ferrous Sulfate 325 MG TAB PO SCH (17:00)
[2024-08-02] MEDS ORDERED: Ascorbic Acid 500 MG TAB PO SCH (21:00)
[2024-08-03] VITALS (12 sets, daily range): BP systolic 132–159; BP diastolic 67–80; PULSE 61–70; TEMP 97.7–98.3
[2024-08-03] MEDS ORDERED: Melatonin 3 MG TAB PO SCH (02:40)
--- NOTE | 2024-08-03 02:41 | NUR ---
Patient requesting something to help him sleep. Spoke with DUY Paredes and new orders received and initiated. Report given to primary RN-Morenita.
--- NOTE | 2024-08-03 05:11 | NUR ---
AM labs drawn from PICC line by this nurse. Both ports flush well with good blood return. Caps changed per protocol.
[2024-08-03 05:39] LABS: ALBUMIN 1.6 g/dL (3.4-4.8); BILIRUBIN,TOTAL 0.2 mg/dL (0.2-1.2); CALCIUM 8.3 mg/dL (8.4-10.2); CREATININE, serum 0.83 mg/dL (0.72-1.25); MAGNESIUM 1.5 mg/dL (1.6-2.6); PHOSPHOROUS 3.5 mg/dL (2.3-4.7); POTASSIUM 3.7 mEq/L (3.5-4.5); TOTAL PROTEIN 5.4 g/dl (6.2-8.1)
[2024-08-03] MEDS ORDERED: Potassium Chloride 100 ML IV SCH (07:45)
[2024-08-03] MEDS ORDERED: Cefepime 2 G in Water For Injection,Sterile 20 ML IV SCH (08:45)
--- NOTE | 2024-08-03 08:57 | NUR ---
SW attended clinical rounds. Patient stable for transfer to [facility]. SW faxed clinical updates to [facility] with request for them to initiate insurance authorization. Attended notified that patient will require auth for discharge. Discharge plan: [facility]
[2024-08-03] MEDS ORDERED: Magnesium Sulfate 2 GM/50 ML IV SOLN IV SCH (09:00)
[2024-08-03] MEDS ORDERED: Insulin Glargine-ygfn (Lantus) SQ SCH ×2 (09:00)
[2024-08-03] MEDS ORDERED: Linezolid 600 MG TAB PO SCH (09:00)
[2024-08-03] MEDS ORDERED: Magnesium Oxide 400 MG TAB PO SCH (09:00)
--- NOTE | 2024-08-03 15:00 | NUR ---
Call placed to Radha Higgins to report 6 secs PSVTs with [id number] reported by [employer]. She ordered an EKG to monitor.
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
--- NOTE | 2024-08-03 21:10 | NUR ---
RT SPOKE TO PT ABOUT USING A HOSPITAL CPAP. PT STATES HE DOES NOT LIKE THE HOSPITAL MASKS AND IS REFUSING TO WEAR THE CPAP. RT ASKED PT IF HE HAD A HOME CPAP, PT STATES YES BUT HAS NO ONE TO BRING THE CPAP TO HIM WHILE AT THE HOSPITAL.
[2024-08-04] VITALS (12 sets, daily range): BP systolic 146–156; BP diastolic 74–87; PULSE 62–68; TEMP 98.1–98.5
[2024-08-04 06:32] LABS: MEAN CELL VOLUME 102 fl (80.0-100.0); MEAN CORPUSCULAR HGB CONC 32 g/dl (33.0-37.0); MEAN PLATELET VOLUME 10.3 fl (7.4-10.4); PLATELET COUNT 341 K/mm3 (130-400); RED BLOOD COUNT 2.58 M/mm3 (4.20-5.60); REDCELL DISTRIBUTION WIDTH-CV 14.6 % (11.5-14.5)
[2024-08-04 06:34] LABS: HEMATOCRIT 26.3 % (42.0-52.0); HEMOGLOBIN 8.4 g/dl (13.5-18.0); MEAN CORPUSCULAR HEMOGLOBIN 33 pg (27-31)
[2024-08-04 06:48] LABS: CALCIUM 8.4 mg/dL (8.4-10.2); CREATININE, serum 0.84 mg/dL (0.72-1.25); POTASSIUM 3.9 mEq/L (3.5-4.5)
[2024-08-04 07:26] LABS: BAND 14 % (0-10); EOSINOPHIL 1 % (0-4); LYMPHOCYTE 4 % (20.0-51.0); NEUTROPHILS 76 % (42.0-75.2); PLATELET ESTIMATE NORMAL (NORMAL)
--- NOTE | 2024-08-04 07:56 | NUR ---
Patient laying in bed watching TV. A&Ox4. VSS. IV CDI. LF leg dressing CDI, elevated on pillow. Urinal at the bedside. Call light within reach. Bed alarm on
[2024-08-04] MEDS ORDERED: Insulin Glargine-ygfn (Lantus) SQ SCH (09:00)
--- NOTE | 2024-08-04 09:11 | NUR ---
SHARRI attended clinical rounds. Patient is pending insurance authorization for transfer to [facility]. SHARRI spoke with [facility] who confirmed they are awaiting auth. Patient updated. SHARRI faxed clinical updates to [facility]. Discharge plan: [facility]
[2024-08-04] MEDS ORDERED: Potassium Bicarbonate/Citrate 20 MEQ Effervescent TAB PO ONE (10:00)
[2024-08-04] MEDS ORDERED: Alteplase 1 MG/ML 2 ML VIAL ICA ONE ×2 (13:00)
--- NOTE | 2024-08-04 19:55 | NUR ---
UPON SHIFT ASSESSMENT, PATIENT WAS AWAKE IN BED AND A&O X4. RT UPPER ARM WRAPPED IN GAUZE AND KERLIX TO ADDRESS EDEMA RELATED WEEPING. LTBKA SITE REMAINS IN IMMOBILIZER WITH DRESSING CDI, SKIN ADJACENT TO DRESSING WNL. PATIENT COMPLAINS OF 6/10 PHANTOM PAINS. WILL ADMINISTER PRN PAIN MEDS WITH MED PASS. CURRENT VS ARE WNL.
[2024-08-05] VITALS (7 sets, daily range): BP systolic 145–156; BP diastolic 70–74; PULSE 58–61; TEMP 97.7–98.2
--- NOTE | 2024-08-05 02:15 | NUR ---
PATIENT DRESSING SATURATED WITH SEROUS FLUID-RT FOREARM. REDRESSED. PATIENT TOLERATED WELL.
[2024-08-05 06:20] LABS: MEAN CELL VOLUME 102 fl (80.0-100.0); MEAN CORPUSCULAR HGB CONC 32 g/dl (33.0-37.0); MEAN PLATELET VOLUME 10.3 fl (7.4-10.4); PLATELET COUNT 343 K/mm3 (130-400); RED BLOOD COUNT 2.55 M/mm3 (4.20-5.60); REDCELL DISTRIBUTION WIDTH-CV 14.6 % (11.5-14.5)
[2024-08-05 06:31] LABS: HEMOGLOBIN 8.3 g/dl (13.5-18.0); MEAN CORPUSCULAR HEMOGLOBIN 33 pg (27-31)
[2024-08-05 06:44] LABS: CALCIUM 8.1 mg/dL (8.4-10.2); CREATININE, serum 0.86 mg/dL (0.72-1.25); POTASSIUM 3.8 mEq/L (3.5-4.5)
[2024-08-05 07:38] LABS: BAND 1 % (0-10); EOSINOPHIL 2 % (0-4); LYMPHOCYTE 9 % (20.0-51.0); METAMYELOCYTE 1 % (0-0); NEUTROPHILS 84 % (42.0-75.2); NUCLEATED RED BLOOD CELL 1 (0-6); PLATELET ESTIMATE NORMAL (NORMAL)
[2024-08-05 07:39] LABS: HYPOCHROMIA 1+
[2024-08-05] MEDS ORDERED: Insulin Glargine-ygfn (Lantus) SQ SCH (09:00)
--- NOTE | 2024-08-05 09:30 | NUR ---
Patient resting on the side of the bed, alert and oriented x 4, watching TV. States some pain in his left leg. Assessment compelted, meds given. No further needs at this time. Call light within reach. bed alarm on.
[2024-08-05] MEDS ORDERED: MAXIPIME2 GM IJ (10:07)
[2024-08-05] MEDS ORDERED: ZYVOX 600MG600 MG PO (10:08)
[2024-08-05] MEDS ORDERED: FERROUS SU325 MG/TAB PO (10:09)
[2024-08-05] MEDS ORDERED: ROXICODONE 55 MG/TAB PO (10:10)
[2024-08-05] MEDS ORDERED: MAG-OX 400400 MG/TAB PO (10:10)
[2024-08-05] MEDS ORDERED: PROBIOTIC BLEN1 EACH PO (10:11)
[2024-08-05] MEDS ORDERED: INSULIN AS100 UNIT/2 SQ (10:12)
[2024-08-05] MEDS ORDERED: INSLANT SQ (10:12)
[2024-08-05] MEDS ORDERED: FOLIC ACID 11 MG/TA1 PO (10:13)
[2024-08-05] MEDS ORDERED: VITAMIN C500 MG PO (10:13)
[2024-08-05] MEDS ORDERED: THIAMINE 1100 MG/TAB PO (10:13)
[2024-08-05] MEDS ORDERED: B-121000 MCG PO (10:13)
[2024-08-05] MEDS ORDERED: DUO-KAPS1 CAP PO (10:14)
--- NOTE | 2024-08-05 10:33 | NUR ---
Call placed to [facility]. Patient is not a donation for organ donation. May continue with extubation.
--- NOTE | 2024-08-05 12:14 | NUR ---
SW attended clinical rounds early this morning. Patient remains stable for discharge. SHARRI received call from Sussy at [facility] stating that she was en route to hospital to meet with patient. Sussy reported that they have received authorization from patient's insurance and are able to admit patient today. Sussy arranged for transport at [address] Merida notified of acceptance. Discharge orders faxed to [facility]. RN and UC notified of transport time. Patient notified of transport time. Patient voiced concerns about his dogs. Patient reports that his dogs are currenly at a Vet office being borded. SW encouraged patient to contact the Vet to discuss dogs remaining for extended time while he is in rehab due to patient stating there is no one else to care for them. Patient also voiced concern about his vehicle being parked in ED parking lot at this hospital. SW called security to inquire about patient's vehicle. Security stated it will be ok to leave vehicle during patient's rehab. Patient updated on security response. Discharge plan: [facility]
--- NOTE | 2024-08-05 13:22 | NUR ---
CALL PLACED TO GIVE REPORT TO [facility], NO ANSWER
--- NOTE | 2024-08-05 14:39 | NUR ---
Report given to LIT Mcqueen at [facility]. Patient was picked up.
== END 2024-08-05 14:20 | DRG 853 ==
LOC: COL.ER 12:33 → MEDICAL 15:55 → ICU 15:55 → MEDICAL 07-31 16:44
PROVIDERS: Internal Medicine; Internal Medicine Pulmonary Disease; Orthopaedic Surgery; Physician Assistant; ADMIT Internal Medicine
PROC: 5A1935Z Respiratory Ventilation, Less than 24 Consecutive Hours (ICD-10-PCS; 2024-07-28)
PROC: 02HV33Z Insertion of Infusion Device into Superior Vena Cava, Percutaneous Approach (ICD-10-PCS; 2024-07-28)
PROC: 0Y6J0Z1 Detachment at Left Lower Leg, High, Open Approach (ICD-10-PCS; principal; 2024-07-28 14:00)
DX: A41.9 Sepsis, unspecified organism (principal); E11.10 Type 2 diabetes mellitus with ketoacidosis without coma; L03.116 Cellulitis of left lower limb; N17.9 Acute kidney failure, unspecified; M87.078 Idiopathic aseptic necrosis of left toe(s); I82.402 Acute embolism and thrombosis of unspecified deep veins of left lower extremity; I10 Essential (primary) hypertension; J44.9 Chronic obstructive pulmonary disease, unspecified; E11.40 Type 2 diabetes mellitus with diabetic neuropathy, unspecified; E78.5 Hyperlipidemia, unspecified; G47.33 Obstructive sleep apnea (adult) (pediatric); I48.0 Paroxysmal atrial fibrillation; Z79.01 Long term (current) use of anticoagulants; Z79.82 Long term (current) use of aspirin; Z86.14 Personal history of Methicillin resistant Staphylococcus aureus infection; Z79.84 Long term (current) use of oral hypoglycemic drugs; Z79.4 Long term (current) use of insulin; Z79.899 Other long term (current) drug therapy; Z87.891 Personal history of nicotine dependence; J30.81 Allergic rhinitis due to animal (cat) (dog) hair and dander; D64.9 Anemia, unspecified; D50.9 Iron deficiency anemia, unspecified; E87.5 Hyperkalemia; E83.52 Hypercalcemia; R13.10 Dysphagia, unspecified; R19.7 Diarrhea, unspecified; E83.42 Hypomagnesemia
CPT/HCPCS: A4314; C1751; J0692; J1650; J1815; J1940; J2060; J2270; J2371; J2470; J2543; J2598; J2704; J2997; J3010; J3370; J3475; J3480; J7030; J7040; J7050; J7120; L1830